=== PATIENT | male | born 1965 | race Caucasian/White ===

== ENCOUNTER 2017-02-15 06:58 | Emergency (ER) | payer OTHER ==
[~2017-02-15] VITALS: Ht 182.9 cm; Wt 75.0 kg
[~2017-02-15 06:58] MED LIST: BACT800T5 PO; CEPH500C3 PO
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
[2017-02-15 07:22] VITALS: BP 125/71; PULSE 87; RESP 14; TEMP 98.1; O2SAT 98
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
[2017-02-15] MEDS ORDERED: TRAM50TA PO (07:57)
== END 2017-02-15 08:21 | disposition home or self-care (01) ==
LOC: NEPB 06:58
DX: S62.315A Displaced fracture of base of fourth metacarpal bone, left hand, initial encounter for closed fracture (principal); Z72.0 Tobacco use; Y35.891A Legal intervention involving other specified means, law enforcement official injured, initial encounter; Y99.0 Civilian activity done for income or pay
CPT/HCPCS: 29125; 73130